=== PATIENT | female | born 1995 | race Hispanic/Latino ===

== ENCOUNTER 2020-03-13 18:44 | Emergency (ER) | payer SELFPAY ==
[~2020-03-13] VITALS: Ht 162.6 cm; Wt 90.7 kg
[2020-03-13] MEDS ORDERED: KETOROLAC TROMETHAMINE 30 MG/ML VIAL IM STA (19:21)
[2020-03-13] MEDS ORDERED: ACETAMINOPHEN 325 MG TAB PO ONE (19:30)
[2020-03-13] MEDS ORDERED: ONDANSETRON HCL 4 MG ORAL DISINTEGRATING TAB PO ONE (19:30)
== END 2020-03-13 20:45 | disposition home or self-care (01) ==
LOC: ER 19:22
DX: R50.9 Fever, unspecified (principal); R05 Cough; R53.1 Weakness; R51.9 Headache, unspecified; R53.83 Other fatigue; E66.9 Obesity, unspecified
CPT/HCPCS: 99282; J1885; Q0162